=== PATIENT | female | born 1985 | race Caucasian/White ===

== ENCOUNTER 2018-11-02 22:18 | Outpatient (CLI) | payer BC ==
[2018-11-02 23:39] LABS: ADD UMIC NO; UR ASCORBIC ACID NEGATIVE (NEGATIVE); UR BILIRUBIN (Dip) NEGATIVE (NEGATIVE); UR BLOOD (Dip) NEGATIVE (NEGATIVE); UR CLARITY CLEAR (CLEAR); UR COLOR YELLOW (YELLOW); UR GLUCOSE (Dip) NEGATIVE (NEGATIVE); UR KETONES (Dip) NEGATIVE (NEGATIVE); UR LEUKOCYTE ESTERASE (Dip) NEGATIVE Leu/ul (NEGATIVE); UR NITRITE (Dip) NEGATIVE (NEGATIVE); UR SPECIFIC GRAVITY (Dip) 1.012 (1.003-1.030); UR TOTAL PROTEIN (Dip) NEGATIVE (NEGATIVE); UR UROBILINOGEN (Dip) NEGATIVE (NEGATIVE)
[2018-11-02 23:58] LABS: RUPTURE FETAL MEMBRANES NEGATIVE (NEGATIVE)
== END 2018-11-03 05:28 | disposition home or self-care (01) ==
LOC: OBT 22:18 → L-D 22:18
DX: O42.912 Preterm premature rupture of membranes, unspecified as to length of time between rupture and onset of labor, second trimester (principal); O34.219 Maternal care for unspecified type scar from previous cesarean delivery; Z3A.28 28 weeks gestation of pregnancy
CPT/HCPCS: 76815; 76817; 76818; 81003; 82731; 84112

== ENCOUNTER 2018-11-05 08:54 | Inpatient (IN) | payer BC ==
[2018-11-05 10:32] LABS: RUPTURE FETAL MEMBRANES NEGATIVE (NEGATIVE)
[2018-11-05 11:17] LABS: ADD MAN DIFF? NO
[2018-11-05] MEDS: LACTATED RINGER'S 1,000 ML IV ×2 (11:24→18:49)
[2018-11-05 11:26] LABS: ADD UMIC YES; UR ASCORBIC ACID NEGATIVE (NEGATIVE); UR BACTERIA FEW /HPF (NONE SEEN); UR BILIRUBIN (Dip) NEGATIVE (NEGATIVE); UR BLOOD (Dip) 1+ mg/dL (NEGATIVE); UR CLARITY SLIGHTLY CLOUDY (CLEAR); UR COLOR YELLOW (YELLOW); UR GLUCOSE (Dip) NEGATIVE (NEGATIVE); UR KETONES (Dip) NEGATIVE (NEGATIVE); UR LEUKOCYTE ESTERASE (Dip) NEGATIVE Leu/ul (NEGATIVE); UR NITRITE (Dip) NEGATIVE (NEGATIVE); UR RBC 2 /HPF (0-5); UR SPECIFIC GRAVITY (Dip) 1.016 (1.003-1.030); UR SQUAMOUS EPITHELIAL CELL FEW /HPF (FEW); UR TOTAL PROTEIN (Dip) NEGATIVE (NEGATIVE); UR UROBILINOGEN (Dip) NEGATIVE (NEGATIVE); UR WBC 2 /HPF (0-5)
[2018-11-05] MEDS: BETAMET NA PHOS/AC(6 MG/ML) 2 ML INJ SYG IM (11:35)
[2018-11-05] MEDS: AZITHROMYCIN 250 MG TAB PO (11:41)
[2018-11-05 11:46] LABS: AMPHETAMINE/METHAMPHETAMINE NEGATIVE (NEGATIVE); BARBITURATES NEGATIVE (NEGATIVE); BENZODIAZEPINES NEGATIVE (NEGATIVE); CANNABINOIDS NEGATIVE (NEGATIVE); COCAINE NEGATIVE (NEGATIVE); OPIATES NEGATIVE (NEGATIVE)
[2018-11-05 11:57] LABS: MAGNESIUM 1.7 mg/dl (1.7-2.5)
[2018-11-05 12:38] LABS: WHITE BLOOD COUNT 13.1 10^3/ul (4.8-10.8)
[2018-11-05 12:38] LABS: BASOPHILS % 0.2 % (0.0-2.0); EOSINOPHILS # 0.1 10^3/ul (0.0-0.5); EOSINOPHILS % 0.6 % (0.0-7.0); HEMATOCRIT 35.2 % (37.0-47.0); HEMOGLOBIN 11.1 g/dl (12.0-16.0); LYMPHOCYTES # 2.2 10^3/ul (0.8-2.9); LYMPHOCYTES % 16.7 % (15.0-51.0); MEAN CORPUSCULAR HEMOGLOBIN 25.9 pg (29.0-33.0); MEAN CORPUSCULAR HGB CONC 31.5 g/dl (32.0-37.0); MEAN CORPUSCULAR VOLUME 82.2 fl (82.0-101.0); MEAN PLATELET VOLUME 10.7 fl (7.4-10.4); MONOCYTE # 0.7 10^3/ul (0.3-0.9); MONOCYTES % 5.1 % (0.0-11.0); NEUTROPHIL # 10.1 10^3/ul (1.6-7.5); NEUTROPHILS % 76.6 % (39.0-77.0); PLATELET COUNT 288 10^3/UL (140-415); RED BLOOD COUNT 4.28 10^6/ul (4.20-5.40); RED CELL DISTRIBUTION WIDTH 14.7 % (11.5-14.5)
[2018-11-05] MEDS: MAGNESIUM SULFATE 4 GM/100 ML 100 ML IV (13:32)
[2018-11-05] MEDS: AMPICILLIN 2 GM/NS (PMX) 100 ML IV ×2 (13:49→20:05)
[2018-11-05 13:51] LABS: ALANINE AMINOTRANSFERASE 20 IU/L (13-69); ALBUMIN 3.2 g/dl (3.3-4.9); ALBUMIN/GLOBULIN RATIO 0.91; ALKALINE PHOSPHATASE 136 IU/L (42-121); ANION GAP 7 (5-13); ASPARTATE AMINO TRANSFERASE 27 IU/L (15-46); BILIRUBIN,INDIRECT 0.3 mg/dl (0-1.1); BILIRUBIN,TOTAL 0.3 mg/dl (0.2-1.3); BLOOD UREA NITROGEN 4 mg/dl (7-20); CALCIUM 9.5 mg/dl (8.4-10.2); CARBON DIOXIDE 21 mmol/L (21-31); CHLORIDE 110 mmol/L (97-110); Estimated GFR > 60 mL/min (>60); GLUCOSE 117 mg/dl (70-220); SODIUM 138 mmol/L (135-144); TOTAL PROTEIN 6.7 g/dl (6.1-8.1)
[2018-11-05] MEDS: MAGNESIUM SULFATE 20 GM/500 ML 500 ML IV ×2 (14:03→20:51)
[2018-11-05 18:16] LABS: MAGNESIUM 3.8 mg/dl (1.7-2.5)
[2018-11-05] MEDS: ACETAMINOPHEN 325 MG TAB PO (20:58)
[2018-11-06] MEDS: AMPICILLIN 2 GM/NS (PMX) 100 ML IV ×5 (00:08→23:58)
[2018-11-06] MEDS: MAGNESIUM SULFATE 20 GM/500 ML 500 ML IV ×2 (00:13→09:59)
[2018-11-06 01:44] LABS: MAGNESIUM 4.2 mg/dl (1.7-2.5)
[2018-11-06] MEDS: LACTATED RINGER'S 1,000 ML IV ×2 (03:22→19:08)
[2018-11-06] MEDS: ACETAMINOPHEN 325 MG TAB PO ×2 (06:05→09:53)
[2018-11-06 07:54] LABS: MAGNESIUM 4.6 mg/dl (1.7-2.5)
[2018-11-06] MEDS: DOCUSATE SODIUM 100 MG CAP PO (09:31)
[2018-11-06] MEDS: FERROUS SULFATE (EC) 325 MG TAB PO (09:32)
[2018-11-06] MEDS: AZITHROMYCIN 250 MG TAB PO (09:32)
[2018-11-06] MEDS: PRENATAL VITAMIN PO (09:32)
[2018-11-06] MEDS: BETAMET NA PHOS/AC(6 MG/ML) 2 ML INJ SYG IM (11:40)
[2018-11-06 12:39] LABS: MAGNESIUM 4.5 mg/dl (1.7-2.5)
[2018-11-07] MEDS: MAGNESIUM SULFATE 20 GM/500 ML 500 ML IV (02:24)
[2018-11-07] MEDS: LACTATED RINGER'S 1,000 ML IV ×4 (04:07→19:10)
[2018-11-07] MEDS: AMPICILLIN 2 GM/NS (PMX) 100 ML IV ×4 (06:05→23:50)
[2018-11-07] MEDS: PRENATAL VITAMIN PO (11:30)
[2018-11-07] MEDS: DOCUSATE SODIUM 100 MG CAP PO (11:31)
[2018-11-07] MEDS: AZITHROMYCIN 250 MG TAB PO (11:31)
[2018-11-07] MEDS: FERROUS SULFATE (EC) 325 MG TAB PO (11:31)
[2018-11-08] MEDS: LACTATED RINGER'S 1,000 ML IV ×2 (03:08→15:45)
[2018-11-08] MEDS: AMPICILLIN 2 GM/NS (PMX) 100 ML IV ×3 (05:58→17:33)
[2018-11-08] MEDS: PRENATAL VITAMIN PO (08:58)
[2018-11-08] MEDS: FERROUS SULFATE (EC) 325 MG TAB PO (08:58)
[2018-11-08] MEDS: DOCUSATE SODIUM 100 MG CAP PO (08:58)
[2018-11-08] MEDS: AZITHROMYCIN 250 MG TAB PO (08:59)
[2018-11-08 15:12] LABS: RUPTURE FETAL MEMBRANES NEGATIVE (NEGATIVE)
[2018-11-09] MEDS: AMPICILLIN 2 GM/NS (PMX) 100 ML IV ×5 (00:08→23:54)
[2018-11-09] MEDS: LACTATED RINGER'S 1,000 ML IV ×4 (01:19→21:43)
[2018-11-09] MEDS: ACETAMINOPHEN 325 MG TAB PO ×2 (04:06→23:56)
[2018-11-09] MEDS: FERROUS SULFATE (EC) 325 MG TAB PO (09:17)
[2018-11-09] MEDS: DOCUSATE SODIUM 100 MG CAP PO (09:17)
[2018-11-09] MEDS: PRENATAL VITAMIN PO (09:17)
[2018-11-09] MEDS: AZITHROMYCIN 250 MG TAB PO (09:46)
[2018-11-10] MEDS: AMPICILLIN 2 GM/NS (PMX) 100 ML IV ×4 (05:47→23:37)
[2018-11-10] MEDS: LACTATED RINGER'S 1,000 ML IV ×2 (06:52→14:30)
[2018-11-10] MEDS: ACETAMINOPHEN 325 MG TAB PO (07:21)
[2018-11-10] MEDS: DOCUSATE SODIUM 100 MG CAP PO (08:31)
[2018-11-10] MEDS: PRENATAL VITAMIN PO (08:31)
[2018-11-10] MEDS: FERROUS SULFATE (EC) 325 MG TAB PO (08:31)
[2018-11-10] MEDS: AZITHROMYCIN 250 MG TAB PO (08:31)
[2018-11-10] MEDS: AL HYDROX/MG HYDROX/SIMETH 30 ML CUP PO (14:39)
[2018-11-11] MEDS: LACTATED RINGER'S 1,000 ML IV ×2 (04:42→07:30)
[2018-11-11] MEDS: AMPICILLIN 2 GM/NS (PMX) 100 ML IV (05:59)
== END 2018-11-11 10:55 | disposition home or self-care (01) | DRG 832 ==
LOC: OBT 08:54 → L-D 08:56 → OBT 10:43 → L-D 10:45 → PP1 20:20
PROVIDERS: Specialist
DX: O41.03X0 Oligohydramnios, third trimester, not applicable or unspecified (principal); O47.03 False labor before 37 completed weeks of gestation, third trimester; Z3A.29 29 weeks gestation of pregnancy
CPT/HCPCS: 76815; 76816; 76818; 76820; 80053; 80307; 81001; 82731; 83735; 84112; 85025; 86900; 86901; 87081; 87086

== ENCOUNTER 2018-12-03 11:47 | Inpatient (IN) | payer BC ==
[2018-12-03] MEDS: LACTATED RINGER'S 1,000 ML IV ×2 (14:18→18:50)
[2018-12-04] MEDS: LACTATED RINGER'S 1,000 ML IV ×6 (00:16→21:44)
[2018-12-04] MEDS ORDERED: AL HYDROX/MG HYDROX/SIMETH 30 ML CUP PO (08:30)
[2018-12-04] MEDS ORDERED: ACETAMINOPHEN 325 MG TAB PO (08:30)
[2018-12-04] MEDS: PRENATAL VITAMIN PO (09:00)
[2018-12-04] MEDS: FERROUS SULFATE (EC) 325 MG TAB PO (10:31)
[2018-12-05] MEDS: LACTATED RINGER'S 1,000 ML IV ×3 (06:04→22:19)
[2018-12-05] MEDS: FERROUS SULFATE (EC) 325 MG TAB PO (08:46)
[2018-12-05] MEDS: PRENATAL VITAMIN PO (08:46)
[2018-12-05 10:33] LABS: ADD MAN DIFF? NO
[2018-12-05 10:35] LABS: WHITE BLOOD COUNT 11.3 10^3/ul (4.8-10.8)
[2018-12-05 10:35] LABS: BASOPHILS % 0.2 % (0.0-2.0); EOSINOPHILS # 0.1 10^3/ul (0.0-0.5); EOSINOPHILS % 0.5 % (0.0-7.0); HEMATOCRIT 35.3 % (37.0-47.0); LYMPHOCYTES # 1.8 10^3/ul (0.8-2.9); LYMPHOCYTES % 16.3 % (15.0-51.0); MEAN CORPUSCULAR HEMOGLOBIN 25.7 pg (29.0-33.0); MEAN CORPUSCULAR HGB CONC 31.2 g/dl (32.0-37.0); MEAN CORPUSCULAR VOLUME 82.5 fl (82.0-101.0); MEAN PLATELET VOLUME 10.5 fl (7.4-10.4); MONOCYTE # 0.4 10^3/ul (0.3-0.9); MONOCYTES % 3.5 % (0.0-11.0); NEUTROPHIL # 8.9 10^3/ul (1.6-7.5); NEUTROPHILS % 78.6 % (39.0-77.0); NUCLEATED RED BLOOD CELLS% 0.2 /100WBC (0.0-0.0); PLATELET COUNT 255 10^3/UL (140-415); RED BLOOD COUNT 4.28 10^6/ul (4.20-5.40); RED CELL DISTRIBUTION WIDTH 16.5 % (11.5-14.5)
[2018-12-05 11:00] LABS: ALANINE AMINOTRANSFERASE 23 IU/L (13-69); ALKALINE PHOSPHATASE 144 IU/L (42-121); ANION GAP 8 (5-13); ASPARTATE AMINO TRANSFERASE 23 IU/L (15-46); BILIRUBIN,INDIRECT 0.3 mg/dl (0-1.1); BILIRUBIN,TOTAL 0.3 mg/dl (0.2-1.3); BLOOD UREA NITROGEN 4 mg/dl (7-20); CALCIUM 9.1 mg/dl (8.4-10.2); CARBON DIOXIDE 23 mmol/L (21-31); CHLORIDE 107 mmol/L (97-110); CREATININE 0.45 mg/dl (0.44-1.00); Estimated GFR > 60 mL/min (>60); GLUCOSE 162 mg/dl (70-220); POTASSIUM 3.8 mmol/L (3.5-5.1); SODIUM 138 mmol/L (135-144); TOTAL PROTEIN 6.3 g/dl (6.1-8.1)
[2018-12-06] MEDS: LACTATED RINGER'S 1,000 ML IV (06:12)
[2018-12-06] MEDS: PRENATAL VITAMIN PO (10:05)
[2018-12-06] MEDS: FERROUS SULFATE (EC) 325 MG TAB PO (10:05)
[2018-12-06 10:51] LABS: COLLECTION PERIOD 24 hrs
[2018-12-06 11:19] LABS: COLLECTION PERIOD 24 hrs; SCRET 0.45 mg/dl (0.44-1.00); VOLUME 6800 ml/24hrs
[2018-12-06 11:20] LABS: CREATININE CLEARANCE 272.1 mls/min (84.0-162.0); CREATININE,URINE RANDOM 25.93 mg/dl (20-320); VOLUME 6800 mls
== END 2018-12-06 19:07 | disposition home or self-care (01) | DRG 833 ==
LOC: OBT 11:47 → L-D 13:45 → OBT 16:30 → L-D 16:30 → PP1 22:19
DX: O41.03X0 Oligohydramnios, third trimester, not applicable or unspecified (principal); O36.5930 Maternal care for other known or suspected poor fetal growth, third trimester, not applicable or unspecified; Z3A.32 32 weeks gestation of pregnancy
CPT/HCPCS: 36415; 76815; 76816; 76818; 80053; 82575; 84156; 85025; 96360; 96361

== ENCOUNTER 2018-12-08 11:05 | Outpatient (CLI) | payer BC ==
[2018-12-08 12:46] LABS: RUPTURE FETAL MEMBRANES NEGATIVE (NEGATIVE)
[2018-12-08] MEDS ORDERED: LACTATED RINGER'S 1,000 ML IV ×2 (14:00→16:00)
== END 2018-12-08 14:39 | disposition home or self-care (01) ==
LOC: OBT 11:05 → L-D 11:05 → OBT 14:39
DX: O41.93X0 Disorder of amniotic fluid and membranes, unspecified, third trimester, not applicable or unspecified (principal); Z3A.33 33 weeks gestation of pregnancy
CPT/HCPCS: 76817; 76818; 84112

== ENCOUNTER 2018-12-17 14:01 | Inpatient (IN) | payer BC ==
[2018-12-17] MEDS: LACTATED RINGER'S 1,000 ML IV ×2 (15:30→19:38)
[2018-12-17] MEDS: BETAMET NA PHOS/AC(6 MG/ML) 2 ML INJ SYG IM (18:13)
[2018-12-18] MEDS: LACTATED RINGER'S 1,000 ML IV ×3 (03:59→19:58)
[2018-12-18] MEDS: BETAMET NA PHOS/AC(6 MG/ML) 2 ML INJ SYG IM (17:46)
[2018-12-19] MEDS: LACTATED RINGER'S 1,000 ML IV ×3 (04:02→22:02)
[2018-12-20] MEDS: LACTATED RINGER'S 1,000 ML IV ×2 (06:05→15:07)
[2018-12-21] MEDS: PRENATAL VITAMIN PO (10:01)
[2018-12-22] MEDS: PRENATAL VITAMIN PO (09:03)
[2018-12-22] MEDS: DIPHENHYDRAMINE 2%/ZINC 28.4 GM CR TOP (12:18)
== END 2018-12-22 13:45 | disposition home or self-care (01) | DRG 833 ==
LOC: OBT 14:01 → L-D 14:03 → PP1 14:45 → L-D 14:45 → OBT 14:03 → PP1 14:01
DX: O41.03X0 Oligohydramnios, third trimester, not applicable or unspecified (principal); Z3A.34 34 weeks gestation of pregnancy; O36.5930 Maternal care for other known or suspected poor fetal growth, third trimester, not applicable or unspecified
CPT/HCPCS: 76816; 76820

== ENCOUNTER 2018-12-30 14:09 | Inpatient (IN) | payer BC ==
[2018-12-30] MEDS ORDERED: AL HYDROX/MG HYDROX/SIMETH 30 ML CUP PO (17:00)
[2018-12-30] MEDS ORDERED: ACETAMINOPHEN 325 MG TAB PO (17:00)
[2018-12-30] MEDS: LACTATED RINGER'S 1,000 ML IV ×2 (17:28→22:43)
[2018-12-30 17:40] LABS: ADD MAN DIFF? NO
[2018-12-30 17:43] LABS: WHITE BLOOD COUNT 11.4 10^3/ul (4.8-10.8)
[2018-12-30 17:43] LABS: BASOPHILS % 0.3 % (0.0-2.0); EOSINOPHILS # 0.1 10^3/ul (0.0-0.5); EOSINOPHILS % 0.6 % (0.0-7.0); HEMATOCRIT 35.4 % (37.0-47.0); HEMOGLOBIN 11.3 g/dl (12.0-16.0); LYMPHOCYTES # 2.4 10^3/ul (0.8-2.9); LYMPHOCYTES % 20.6 % (15.0-51.0); MEAN CORPUSCULAR HEMOGLOBIN 25.7 pg (29.0-33.0); MEAN CORPUSCULAR HGB CONC 31.9 g/dl (32.0-37.0); MEAN CORPUSCULAR VOLUME 80.6 fl (82.0-101.0); MEAN PLATELET VOLUME 11.1 fl (7.4-10.4); MONOCYTE # 0.8 10^3/ul (0.3-0.9); MONOCYTES % 6.6 % (0.0-11.0); NEUTROPHIL # 8.1 10^3/ul (1.6-7.5); NEUTROPHILS % 71.2 % (39.0-77.0); PLATELET COUNT 254 10^3/UL (140-415); RED BLOOD COUNT 4.39 10^6/ul (4.20-5.40); RED CELL DISTRIBUTION WIDTH 17.4 % (11.5-14.5)
[2018-12-30 18:02] LABS: INR 0.93; PROTIME 12.6 Sec (11.9-14.9)
[2018-12-30 18:03] LABS: PARTIAL THROMBOPLASTIN TIME 30.5 Sec (23.0-35.0)
[2018-12-31] MEDS: LACTATED RINGER'S 1,000 ML IV ×4 (05:05→19:11)
[2018-12-31] MEDS: FERROUS SULFATE (EC) 325 MG TAB PO (09:13)
[2018-12-31 15:05] LABS: RAPID PLASMA REAGIN NONREACTIVE (NR)
[2018-12-31] MEDS: CITRIC ACID/NA CITRATE 30 ML CUP PO (19:24)
[2018-12-31] MEDS: FAMOTIDINE 20 MG INJ IV (19:24)
[2018-12-31] MEDS ORDERED: OXYCODONE/ACETAMINOPHEN (5/325) TAB PO ×2 (19:30)
[2018-12-31] MEDS ORDERED: NA PHOSPHATE/BIPHOS 133 ML ENEMA PR (19:30)
[2018-12-31] MEDS: METOCLOPRAMIDE 10 MG INJ IV (19:30)
[2018-12-31] MEDS ORDERED: MISOPROSTOL 200 MCG TAB PR ×2 (19:30→22:30)
[2018-12-31] MEDS ORDERED: CEFAZOLIN 1 GM INJ (19:45)
[2018-12-31] MEDS ORDERED: morphine SULFATE/PF (10 MG/10 ML) INJ (19:46)
[2018-12-31] MEDS: CEFAZOLIN 2 GM/50 ML (PMX) 50 ML IVPB (19:46)
[2018-12-31] MEDS ORDERED: OXYTOCIN 30 UNITS/LR 500 ML IV ×2 (19:46→20:29)
[2018-12-31] MEDS ORDERED: PHENYLephrine (100 MCG/ML) 10ML SYG (19:57)
[2018-12-31] MEDS ORDERED: EPHEDrine 25 MG/5 ML SYG (20:08)
[2018-12-31] MEDS: OXYTOCIN 30 UNITS/LR 500 ML IV (20:20)
[2018-12-31] MEDS ORDERED: ONDANSETRON 4 MG INJ (20:21)
[2018-12-31] MEDS ORDERED: NALOXONE (0.4 MG/ML) INJ IV (20:30)
[2018-12-31] MEDS ORDERED: ONDANSETRON 4 MG INJ IV ×2 (20:30)
[2018-12-31] MEDS ORDERED: PROCHLORPERAZINE 10 MG INJ IV (20:30)
[2018-12-31] MEDS ORDERED: FENTAnyl 50 MCG/ML VIAL IV ×3 (20:30)
[2018-12-31] MEDS ORDERED: MEPERIDINE 25 MG INJ IV (20:30)
[2018-12-31] MEDS ORDERED: KETOROLAC 30 MG INJ IV (20:30)
[2018-12-31] MEDS ORDERED: HYDROmorphONE 0.5 MG/0.5 ML SYG IV ×2 (20:30)
[2018-12-31] MEDS ORDERED: ZOLPIDEM 5 MG TAB PO (20:30)
[2018-12-31] MEDS ORDERED: DIPHENHYDRAMINE 50 MG INJ IV ×2 (20:30)
[2018-12-31] MEDS ORDERED: HYDROmorphONE 1 MG/5 ML IV SYRINGE IV ×3 (20:30)
[2018-12-31] MEDS ORDERED: NALBUPHINE HCL (10 MG/1 ML) INJ IV (20:30)
[2018-12-31] MEDS ORDERED: FENTAnyl 50 MCG/ML VIAL (20:36)
[2018-12-31] MEDS: SENNA/DOCUSATE NA (8.6MG/50MG) TAB PO (22:00)
[2018-12-31] MEDS ORDERED: CARBOPROST 250 MCG INJ IM (22:30)
[2018-12-31] MEDS ORDERED: METHYLERGONOVINE 0.2 MG INJ IM (22:30)
[2018-12-31 22:41] LABS: HEPATITIS B SURFACE ANTIGEN NEGATIVE (NEGATIVE)
[2018-12-31] MEDS: KETOROLAC 30 MG INJ IV (23:01)
[2019-01-01] MEDS: OXYTOCIN 30 UNITS/LR 500 ML IV ×2 (00:09)
[2019-01-01] MEDS: LANOLIN HPA 1 PKT TOP (00:12)
[2019-01-01] MEDS: LACTATED RINGER'S 1,000 ML IV ×2 (04:29→14:54)
[2019-01-01] MEDS: KETOROLAC 30 MG INJ IV ×3 (04:34→21:04)
[2019-01-01] MEDS: IBUPROFEN 600 MG TAB PO ×4 (06:00→18:00)
[2019-01-01 08:15] LABS: ADD MAN DIFF? NO
[2019-01-01 08:36] LABS: BASOPHILS % 0.2 % (0.0-2.0); EOSINOPHILS % 0.3 % (0.0-7.0); LYMPHOCYTES # 1.8 10^3/ul (0.8-2.9); LYMPHOCYTES % 15.3 % (15.0-51.0); MEAN CORPUSCULAR HEMOGLOBIN 25.8 pg (29.0-33.0); MEAN CORPUSCULAR HGB CONC 31.3 g/dl (32.0-37.0); MEAN CORPUSCULAR VOLUME 82.7 fl (82.0-101.0); MEAN PLATELET VOLUME 11.3 fl (7.4-10.4); MONOCYTE # 0.7 10^3/ul (0.3-0.9); MONOCYTES % 5.5 % (0.0-11.0); NEUTROPHIL # 9.3 10^3/ul (1.6-7.5); NEUTROPHILS % 77.9 % (39.0-77.0); PLATELET COUNT 203 10^3/UL (140-415); RED BLOOD COUNT 3.87 10^6/ul (4.20-5.40); RED CELL DISTRIBUTION WIDTH 17.4 % (11.5-14.5)
[2019-01-01] MEDS: SENNA/DOCUSATE NA (8.6MG/50MG) TAB PO ×2 (09:00→21:04)
[2019-01-02] MEDS: IBUPROFEN 600 MG TAB PO ×5 (00:13→23:40)
[2019-01-02] MEDS: SENNA/DOCUSATE NA (8.6MG/50MG) TAB PO ×2 (09:39→21:17)
[2019-01-03] MEDS: IBUPROFEN 600 MG TAB PO ×2 (05:49→12:42)
[2019-01-03] MEDS: MEASLES,MUMPS,RUBELLA VACCINE INJ SC* (09:00)
[2019-01-03] MEDS: SENNA/DOCUSATE NA (8.6MG/50MG) TAB PO (09:58)
== END 2019-01-03 14:25 | disposition home or self-care (01) | DRG 785 ==
LOC: OBT 14:09 → L-D 14:10 → OBT 15:03 → L-D 12-31 20:00 → PP1 15:03 → L-D 12-31 21:15 → PP1 12-31 23:39
PROVIDERS: Specialist
PROC: 10D00Z1 Extraction of Products of Conception, Low, Open Approach (ICD-10-PCS; principal; 2018-12-31 20:15)
PROC: 0UB70ZZ Excision of Bilateral Fallopian Tubes, Open Approach (ICD-10-PCS; 2018-12-31 20:15)
DX: O41.03X0 Oligohydramnios, third trimester, not applicable or unspecified (principal); O36.5930 Maternal care for other known or suspected poor fetal growth, third trimester, not applicable or unspecified; O34.211 Maternal care for low transverse scar from previous cesarean delivery; O34.83 Maternal care for other abnormalities of pelvic organs, third trimester; N83.8 Other noninflammatory disorders of ovary, fallopian tube and broad ligament; Z37.0 Single live birth; Z30.2 Encounter for sterilization; Z3A.36 36 weeks gestation of pregnancy
CPT/HCPCS: 76818; 85025; 85610; 85730; 86592; 86850; 86900; 86901; 87340; 88302; 99464